=== PATIENT | female | born 1955 | race Two or more races ===

== ENCOUNTER 2021-09-27 15:28 | Emergency (ER) | payer OTHER ==
[~2021-09-27] VITALS: Ht 149.9 cm; Wt 61.2 kg
[2021-09-27] MEDS ORDERED: JANUMET 50-1,01 EACH PO (15:39)
[2021-09-27] MEDS ORDERED: DILTIAZEM HCL120 MG (15:40)
[2021-09-27] MEDS ORDERED: ATACAND32 MG PO (15:40)
[2021-09-27] MEDS ORDERED: CLINDAMYCIN HC300 MG PO (21:57)
[2021-09-27] MEDS ORDERED: ACETAMINOPHEN650 M2 PO (21:57)
[2021-09-27] MEDS ORDERED: INTESTINEX680 M1 PO (21:57)
== END 2021-09-27 22:05 | disposition home or self-care (01) ==
LOC: ER 15:28 → EDBD 15:33 → ER 22:05
DX: K11.20 Sialoadenitis, unspecified (principal); M54.2 Cervicalgia; R59.1 Generalized enlarged lymph nodes

== ENCOUNTER 2021-09-30 07:41 | Outpatient (CLI) | payer OTHER ==
[~2021-09-30 07:41] MED LIST: ACETAMINOPHEN650 M2 PO; ATACAND32 MG PO; CLINDAMYCIN HC300 MG PO; DILTIAZEM HCL120 MG; INTESTINEX680 M1 PO; JANUMET 50-1,01 EACH PO
== END 2021-09-30 07:55 | disposition home or self-care (01) ==
LOC: LAB 07:41
PROVIDERS: ATTEND Surgery
DX: D37.02 Neoplasm of uncertain behavior of tongue (principal)

== ENCOUNTER 2021-09-30 11:21 | Outpatient (CLI) | payer OTHER | END 2021-09-30 11:23 | disposition home or self-care (01) | LOC: SONOGRAMA 11:21 | PROVIDERS: ATTEND Pathology Anatomic Pathology & Clinical Pathology | DX: R22.1 Localized swelling, mass and lump, neck (principal) ==

== ENCOUNTER 2022-06-28 09:30 | Emergency (ER) | payer OTHER ==
[~2022-06-28] VITALS: Ht 149.9 cm; Wt 600.1 kg
== END 2022-06-28 12:57 | disposition left against medical advice (07) ==
LOC: ER 09:30
DX: R10.13 Epigastric pain (principal); Z88.6 Allergy status to analgesic agent; Z91.018 Allergy to other foods; E11.9 Type 2 diabetes mellitus without complications; Z79.84 Long term (current) use of oral hypoglycemic drugs; J45.909 Unspecified asthma, uncomplicated; I10 Essential (primary) hypertension; K21.9 Gastro-esophageal reflux disease without esophagitis

== ENCOUNTER 2022-08-15 11:10 | Emergency (ER) | payer OTHER ==
[~2022-08-15] VITALS: Ht 149.9 cm; Wt 60.8 kg
[2022-08-15] MEDS ORDERED: ZITHROMAX TRI-500 MG PO (13:03)
== END 2022-08-15 13:22 | disposition home or self-care (01) ==
LOC: ER 11:10
DX: B34.9 Viral infection, unspecified (principal); Z88.6 Allergy status to analgesic agent; Z20.822 Contact with and (suspected) exposure to COVID-19

== ENCOUNTER 2022-09-30 16:09 | Emergency (ER) | payer OTHER ==
[~2022-09-30] VITALS: Ht 149.9 cm; Wt 60.8 kg
[~2022-09-30 16:09] MED LIST changes: +ZITHROMAX TRI-500 MG PO
[2022-09-30] MEDS ORDERED: JANUMET 50-1,01 EACH PO (16:25)
== END 2022-09-30 18:48 | disposition home or self-care (01) ==
LOC: ER 16:09
DX: R59.0 Localized enlarged lymph nodes (principal); K11.20 Sialoadenitis, unspecified; Z88.6 Allergy status to analgesic agent; Z91.018 Allergy to other foods; I10 Essential (primary) hypertension; E11.9 Type 2 diabetes mellitus without complications; Z79.84 Long term (current) use of oral hypoglycemic drugs

== ENCOUNTER 2024-06-03 10:30 | Emergency (ER) | payer OTHER ==
[~2024-06-03] VITALS: Ht 149.9 cm; Wt 59.9 kg
[2024-06-03] MEDS ORDERED: DIPHENHYDRAMINE HCL 50 MG/ML VIAL 1ML IM ONE (12:00)
[2024-06-03 13:45] LABS: HEMATOCRIT 39.2 % (36.0-45.00); HEMOGLOBIN 12.7 g/dL (12.0-15.00); MEAN CELL VOLUME 87.8 fL (80.00-100.00); MEAN CORPUSCULAR HEMOGLOBIN 28.6 pg (27.00-32.0); MEAN CORPUSCULAR HGB CONC 32.5 g/dl (32.0-36.0); PLATELET COUNT 376 K/uL (150-450); RED BLOOD COUNT 4.46 M/uL (4.00-6.00); RED CELL DISTRIBUTION WIDTH 14.7 % (11.5-14.5)
[2024-06-03] MEDS ORDERED: PEPCID AC20 MG PO (15:06)
[2024-06-03] MEDS ORDERED: ZITHROMAX500 MG PO (15:06)
== END 2024-06-03 16:38 | disposition home or self-care (01) ==
LOC: ER 10:32
PROVIDERS: General Practice
DX: R53.81 Other malaise (principal); L29.9 Pruritus, unspecified; I10 Essential (primary) hypertension; E11.9 Type 2 diabetes mellitus without complications; Z79.84 Long term (current) use of oral hypoglycemic drugs; Z88.6 Allergy status to analgesic agent; Z91.048 Other nonmedicinal substance allergy status
CPT/HCPCS: 36415; 71045; 93005; 96372; 99283; J1200